=== PATIENT | male | born 1970 | race African-American/Black ===

== ENCOUNTER 2017-05-07 07:04 | Emergency (ER) | payer MEDICAID ==
[~2017-05-07] VITALS: Ht 182.9 cm; Wt 91.0 kg
[~2017-05-07 07:04] MED LIST: ALBUTEROL; HYDROCHLOROTHIAZIDE
[2017-05-07 09:50] VITALS: BP 141/88
== END 2017-05-07 12:14 | disposition home or self-care (01) ==
LOC: ER 10:20
DX: S01.01XD Laceration without foreign body of scalp, subsequent encounter (principal); I10 Essential (primary) hypertension; F12.10 Cannabis abuse, uncomplicated; Z88.0 Allergy status to penicillin; W19.XXXD Unspecified fall, subsequent encounter
CPT/HCPCS: 99281

== ENCOUNTER 2019-05-19 18:08 | Emergency (ER) | payer MEDICAID ==
[~2019-05-19] VITALS: Ht 182.9 cm; Wt 91.0 kg
[2019-05-19 20:00] VITALS: BP 134/79
== END 2019-05-19 20:07 | disposition home or self-care (01) ==
LOC: ER 18:08
DX: S56.40 Unspecified injury of extensor muscle, fascia and tendon of other and unspecified finger at forearm level (principal); X58.XXXS Exposure to other specified factors, sequela; I10 Essential (primary) hypertension; F12.90 Cannabis use, unspecified, uncomplicated
CPT/HCPCS: 73140; 99283

== ENCOUNTER 2025-07-01 19:25 | Emergency (ER) | payer MEDICAID ==
[~2025-07-01] VITALS: Ht 182.9 cm; Wt 88.0 kg
[2025-07-01 19:29] VITALS: O2SAT 97
[2025-07-01] MEDS: IBUPROFEN 800MG TABLET PO ONE (20:34)
[2025-07-01] MEDS: SODIUM CHLORIDE 0.9% 1,000 ML IV ONE (20:35)
[2025-07-01] MEDS: ACETAMINOPHEN 500MG TABLET PO ONE (20:35)
[2025-07-01] MEDS: LEVETIRACETAM 500MG PREMIX 100 ML IV ONE (21:34)
[2025-07-01 21:40] LABS: BASOPHILS % 0.5 % (0.0-2.0); EOSINOPHILS % 2.4 % (0.0-5.0); HEMATOCRIT. 46.0 % (42.0-52.0); HEMOGLOBIN. 15.2 g/dL (14.0-18.0); LYMPHOCYTES % 11.5 % (20.0-50.0); MEAN PLATELET VOLUME 8.5 fl (7.4-10.4); MONOCYTES % 5.7 % (2.0-8.0); NEUTROPHILS % 79.9 % (40.0-76.0); PLATELET 211 x1000/uL (130-400); RED BLOOD CELL COUNT 4.74 mill/uL (4.7-6.1); RED CELL DISTRIBUTION WIDTH 14.6 % (11.6-14.6)
[2025-07-01] MEDS: TRANEXAMIC ACID 1,000MG/10ML IV ONE (21:45)
[2025-07-01 21:53] LABS: CREATININE 0.9 mg/dL (0.6-1.3); UREA NITROGEN BLOOD 8 mg/dL (9-23)
[2025-07-01 21:55] LABS: ASPARTATE AMINOTRANSFERASE 39 IU/L (<34); BILIRUBIN DIRECT 0.1 mg/dL (<=3.0); BILIRUBIN TOTAL 0.4 mg/dL (0.1-1.0)
[2025-07-01 21:56] LABS: PROTEIN TOTAL 8.3 g/dL (6.0-8.3)
[2025-07-01 22:08] LABS: ETHANOL BLOOD 358 mg/dL (<10)
[2025-07-01 23:04] LABS: *AMPHETAMINES SCREEN URINE NEGATIVE (NEGATIVE); *BENZODIAZEPINES SCREEN URINE NEGATIVE (NEGATIVE)
[2025-07-01 23:05] LABS: *BARBITURATES SCREEN URINE NEGATIVE (NEGATIVE); *COCAINE SCREEN URINE NEGATIVE (NEGATIVE); CANNABINOID URINE SCREEN NEGATIVE (NEGATIVE); ECSTASY MDMA SCREEN URINE NEGATIVE (NEGATIVE); METHADONE URINE SCREEN NEGATIVE (NEGATIVE); OPIATES URINE SCREEN NEGATIVE (NEGATIVE); PHENCYCLIDINE URINE SCREEN NEGATIVE (NEGATIVE)
[2025-07-01 23:10] LABS: CLARITY URINE CLEAR (CLEAR); COLOR URINE YELLOW (YELLOW); GLUCOSE URINE NEGATIVE (NEGATIVE); KETONES URINE 1+ (NEGATIVE); LEUKOCYTE ESTERASE URINE NEGATIVE (NEGATIVE); NITRITE URINE NEGATIVE (NEGATIVE); OCCULT BLOOD URINE NEGATIVE (NEGATIVE); PH URINE 5.0 (4.5-8.0); PROTEIN URINE 1+ (NEGATIVE); SPECIFIC GRAVITY URINE 1.017 (1.005-1.030); UROBILINOGEN URINE 0.2 E.U./dL (0.2-1.0)
[2025-07-01 23:13] VITALS: BP 118/62; PULSE 89; RESP 22; TEMP 36.2; O2SAT 92
[2025-07-01 23:28] LABS: BACTERIA URINE NONE SEEN; RBC URINE NONE SEEN /hpf (0-2); SQUAMOUS EPITHELIAL CELL URINE NONE SEEN /lpf (RARE/1+); WBC URINE NONE SEEN /hpf (0-2)
== END 2025-07-01 23:19 | disposition short-term general hospital (02) ==
LOC: ER 19:25 → CMPBEDREQ 07-02 07:50
DX: S06.5X0A Traumatic subdural hemorrhage without loss of consciousness, initial encounter (principal); S00.01XA Abrasion of scalp, initial encounter; S06.6X0A Traumatic subarachnoid hemorrhage without loss of consciousness, initial encounter; I10 Essential (primary) hypertension; F10.129 Alcohol abuse with intoxication, unspecified; Z79.899 Other long term (current) drug therapy; Z88.0 Allergy status to penicillin; W01.10XA Fall on same level from slipping, tripping and stumbling with subsequent striking against unspecified object, initial encounter; Y93.89 Activity, other specified; Y92.89 Other specified places as the place of occurrence of the external cause; Y99.8 Other external cause status; Y90.9 Presence of alcohol in blood, level not specified
CPT/HCPCS: 80076; 80305; 80048; 81003; 80320; 85025; 36415; 70450; 96361; 96365; 96375; 99291; 99292; J1953; J7030; Z7610; G0480